=== PATIENT | male | born 1985 | race Caucasian/White ===

== ENCOUNTER 2018-01-08 09:07 | Emergency (ER) | payer OTHER ==
[~2018-01-08] VITALS: Ht 175.3 cm; Wt 74.8 kg
[~2018-01-08 09:07] MED LIST: ABAC300; CEPH500 PO; CLIN300 PO; CRUTCH2 USE; CRUTCH4 USE; DOXY100 PO; HYDACE10B PO; HYDACE5 PO; HYDMOR2 PO; HYDR1TAB94 PO; IBUP200 PO; METPRE4DP PO; NAPR500 PO; OXYACE5T PO; PERCOCET PO; PROM25 PO; Percocet 5-3251 EACH PO; RXCLIN PO; RXHYDACE PO; SULTRIDS PO; TRAM50 PO; [UNRECOGNIZED DRUG - REMARK]
[2018-01-08] MEDS ORDERED: METPRE4DP PO (09:43)
[2018-01-08] MEDS ORDERED: TRIA15CR3 TOP (09:43)
[2018-01-08] MEDS ORDERED: HYDHCL25 PO (09:43)
== END 2018-01-08 09:58 | disposition home or self-care (01) ==
LOC: ER 09:07
DX: L23.7 Allergic contact dermatitis due to plants, except food (principal); F17.210 Nicotine dependence, cigarettes, uncomplicated; Z88.0 Allergy status to penicillin
CPT/HCPCS: 96372; 99283; J1200; J3301

== ENCOUNTER 2018-01-10 19:02 | Emergency (ER) | payer OTHER ==
[~2018-01-10] VITALS: Ht 175.3 cm; Wt 76.2 kg
[~2018-01-10 19:02] MED LIST changes: +HYDHCL25 PO; +TRIA15CR3 TOP
[2018-01-10] MEDS ORDERED: SOLU-MEDRO125 MG/2 M IM (19:35)
[2018-01-10] MEDS ORDERED: CYPR4 PO (19:40)
[2018-01-10] MEDS ORDERED: Pepcid20 MG PO (19:40)
== END 2018-01-10 19:47 | disposition home or self-care (01) ==
LOC: ER 19:02
DX: L23.7 Allergic contact dermatitis due to plants, except food (principal); Z88.0 Allergy status to penicillin; Z79.899 Other long term (current) drug therapy; F17.210 Nicotine dependence, cigarettes, uncomplicated
CPT/HCPCS: 96372; 99283; J2930

== ENCOUNTER 2018-01-12 08:02 | Emergency (ER) | payer OTHER ==
[~2018-01-12] VITALS: Ht 175.3 cm; Wt 72.6 kg
[~2018-01-12 08:02] MED LIST changes: +CYPR4 PO; +Pepcid20 MG PO; +SOLU-MEDRO125 MG/2 M IM
[2018-01-12 09:40] LABS: BASOPHILS ABSOLUTE AUTO 0.02 K/mm3 (0.00-0.23); BASOPHILS PERCENT AUTO 0 % (0-2); EOSINOPHILS ABSOLUTE AUTO 0.03 K/mm3 (0.00-0.68); EOSINOPHILS PERCENT AUTO 0 % (0-6); Hematocrit 49.3 % (37.0-53.0); Hemoglobin 17.1 g/dL (13.5-17.5); IMMATURE GRAN ABSOLUTE AUTO 0.07 K/mm3 (0.00-0.10); IMMATURE GRAN PERCENT AUTO 1 % (0-1); LYMPHOCYTES ABSOLUTE AUTO 1.85 K/mm3 (0.84-5.20); LYMPHOCYTES PERCENT AUTO 14 % (21-46); MONOCYTES ABSOLUTE AUTO 0.84 K/mm3 (0.16-1.47); MONOCYTES PERCENT AUTO 6 % (4-13); Mean Corpuscular HGB 32.1 pg (26.0-34.0); Mean Corpuscular HGB Conc 34.7 g/dL (31.5-36.5); Mean Corpuscular Volume 93 fL (80-100); Mean Platelet Volume 10.3 fL (9.1-12.4); NEUTROPHILS ABSOLUTE AUTO 10.54 K/mm3 (1.96-9.15); NEUTROPHILS PERCENT AUTO 79 % (41-73); Platelet Count 286 K/mm3 (150-400); RDW Coefficient Variation 12.8 % (11.7-14.2); RDW Standard Deviation 43.4 fL (35.1-46.3); Red Blood Cell Count 5.32 M/mm3 (4.30-5.90); White Blood Cell Count 13.35 K/mm3 (4.00-11.30)
[2018-01-12 09:58] LABS: Alanine Aminotransfer (ALT/SGP 28 U/L (12-78); Albumin, Blood 4.3 g/dL (3.4-5.0); Albumin/Globulin Ratio 1.1 (0.8-1.8); Alk Phos 103 U/L (50-136); Anion Gap 9 mmol/L (6-16); Aspartate Aminotrans (AST/SGOT 23 U/L (12-37); Bilirubin, Total 0.6 mg/dL (0.1-1.0); Blood Urea Nitrogen 20 mg/dL (8-24); Bun/Creatinine Ratio 20.6 (12.0-20.0); CO2, Blood 25 mmol/L (21-32); Chloride, Blood 104 mmol/L (98-108); Creatinine, Blood 0.97 mg/dL (0.60-1.20); Globulin, Blood 3.8 g/dL (2.2-4.0); Glomerular Filtration Rate >60 (60-); Glucose, Blood 101 mg/dL (70-99); Potassium, Blood 3.7 mmol/L (3.5-5.5); Sodium, Blood 138 mmol/L (136-145); Total Protein, Blood 8.1 g/dL (6.4-8.2)
[2018-01-12] MEDS ORDERED: ALBU90OI INH (12:02)
== END 2018-01-12 12:36 | disposition home or self-care (01) ==
LOC: ER 08:02
PROVIDERS: Nurse Practitioner Family
DX: R21 Rash and other nonspecific skin eruption (principal); R06.02 Shortness of breath; R06.2 Wheezing; D72.829 Elevated white blood cell count, unspecified; F17.200 Nicotine dependence, unspecified, uncomplicated; Z88.0 Allergy status to penicillin; Z79.899 Other long term (current) drug therapy
CPT/HCPCS: 36415; 71046; 80053; 85025; 86140; 94640; 96374; 99283; J1200

== ENCOUNTER 2018-02-25 22:51 | Emergency (ER) | payer OTHER ==
[~2018-02-25] VITALS: Ht 175.3 cm; Wt 74.8 kg
[~2018-02-25 22:51] MED LIST changes: +ALBU90OI INH
[2018-02-25] MEDS ORDERED: EPIPEN 2-P0.3 MG/0.3 IM (23:36)
== END 2018-02-25 23:50 | disposition home or self-care (01) ==
LOC: ER 22:51
DX: L50.0 Allergic urticaria (principal); J45.909 Unspecified asthma, uncomplicated; F17.210 Nicotine dependence, cigarettes, uncomplicated; Z88.0 Allergy status to penicillin; Z79.51 Long term (current) use of inhaled steroids
CPT/HCPCS: 99283; J1100

== ENCOUNTER 2021-04-21 06:32 | Emergency (ER) | payer OTHER ==
[~2021-04-21] VITALS: Ht 175.3 cm; Wt 82.5 kg
[~2021-04-21 06:32] MED LIST changes: +EPIPEN 2-P0.3 MG/0.3 IM; +Zofran Odt4 MG SL
== END 2021-04-21 07:58 | disposition home or self-care (01) ==
LOC: ER 06:32
DX: L23.7 Allergic contact dermatitis due to plants, except food (principal); F17.210 Nicotine dependence, cigarettes, uncomplicated
CPT/HCPCS: 96372; 99283-25; J0702; J3301

== ENCOUNTER 2025-01-11 13:54 | Emergency (ER) | payer OTHER ==
[~2025-01-11] VITALS: Ht 172.7 cm; Wt 74.8 kg
[~2025-01-11 13:54] MED LIST changes: +IBUP800 PO
[2025-01-11 14:25] VITALS: BP 161/78
[2025-01-11] MEDS ORDERED: HYDR1TAB94 PO (14:42)
== END 2025-01-11 15:21 | disposition home or self-care (01) ==
LOC: ER 13:54
DX: S62.634A Displaced fracture of distal phalanx of right ring finger, initial encounter for closed fracture (principal); Z88.0 Allergy status to penicillin; F17.210 Nicotine dependence, cigarettes, uncomplicated; V29.99XA Rider (driver) (passenger) of other motorcycle injured in unspecified traffic accident, initial encounter
CPT/HCPCS: 29125; 99281-25